=== PATIENT | female | born 1980 | race Caucasian/White ===

== ENCOUNTER 2020-06-20 14:42 | Emergency (ER) | payer OTHER ==
[~2020-06-20] VITALS: Ht 157.5 cm; Wt 64.0 kg
[2020-06-20 14:52] VITALS: BP 147/82
== END 2020-06-20 17:03 | disposition left against medical advice (07) ==
LOC: ER 14:54
DX: Z53.29 Procedure and treatment not carried out because of patient's decision for other reasons (principal); F41.0 Panic disorder [episodic paroxysmal anxiety]; R06.02 Shortness of breath; I10 Essential (primary) hypertension
CPT/HCPCS: 93005; 99283